=== PATIENT | male | born 1980 | race Caucasian/White ===

== ENCOUNTER 2018-10-05 21:34 | Inpatient (IN) | payer MEDICAID ==
[~2018-10-05] VITALS: Ht 182.9 cm; Wt 81.2 kg
[2018-10-05] MEDS ORDERED: KETOROLAC 30MG/ML VIAL IV STA (23:11)
[2018-10-05] MEDS ORDERED: SODIUM CHLORIDE 0.9% 1000ML BAG (SEPSIS BOLUS) IV ONE (23:15)
[2018-10-05] MEDS ORDERED: PIPERACILLIN/TAZ 3.375G PREMIX 50 ML IV ONE (23:15)
[2018-10-05] MEDS ORDERED: VANCOMYCIN 1 G PREMIX 200 ML IV ONE (23:15)
[2018-10-05 23:37] LABS: CLARITY URINE CLEAR (CLEAR); COLOR URINE DARK YELLOW (YELLOW); KETONES URINE TRACE (NEGATIVE); LEUKOCYTE ESTERASE URINE NEGATIVE (NEGATIVE); NITRITE URINE NEGATIVE (NEGATIVE); OCCULT BLOOD URINE NEGATIVE (NEGATIVE); PROTEIN URINE 1+ (NEGATIVE); SPECIFIC GRAVITY URINE 1.025 (1.005-1.030)
[2018-10-05 23:46] LABS: BASOPHILS % 0.3 % (0.0-2.0); EOSINOPHILS % 0.3 % (0.0-5.0); HEMATOCRIT. 39.8 % (42.0-52.0); HEMOGLOBIN. 14.2 g/dL (14.0-18.0); MEAN CORPUSCULAR HEMOGLOBIN 31.6 pg (28.0-32.0); MEAN CORPUSCULAR VOLUME 88.5 fL (80.0-94.0); MEAN PLATELET VOLUME 6.8 fl (7.4-10.4); MONOCYTES % 9.3 % (2.0-8.0); NEUTROPHILS % 81.1 % (40.0-76.0); PLATELET 276 x1000/uL (130-400); RED CELL DISTRIBUTION WIDTH 13.1 % (11.6-14.6)
[2018-10-05 23:48] LABS: *AMPHETAMINES SCREEN URINE PRESUMTIVE POSITIVE (NEGATIVE); *BARBITURATES SCREEN URINE NEGATIVE (NEGATIVE)
[2018-10-05 23:49] LABS: *BENZODIAZEPINES SCREEN URINE NEGATIVE (NEGATIVE); *COCAINE SCREEN URINE NEGATIVE (NEGATIVE); CANNABINOID URINE SCREEN PRESUMTIVE POSITIVE (NEGATIVE); METHADONE URINE SCREEN NEGATIVE (NEGATIVE); OPIATES URINE SCREEN PRESUMTIVE POSITIVE (NEGATIVE); PHENCYCLIDINE URINE SCREEN NEGATIVE (NEGATIVE)
[2018-10-05 23:54] LABS: CHLORIDE 94 mEq/L (98-107)
[2018-10-05 23:59] LABS: ETHANOL BLOOD < 10 mg/dL
[2018-10-06] MEDS ORDERED: ONDANSETRON HCL 4MG/2ML INJ IV STA (01:04)
[2018-10-06] MEDS ORDERED: LORAZEPAM 2MG/ML CPJ IV ONE (01:15)
[2018-10-06] MEDS ORDERED: POTASSIUM CHLORIDE 20MEQ TABLET SR PO ONE (01:45)
[2018-10-06] MEDS ORDERED: IOHEXOL-300 100 ML BOTTLE ONE (02:51)
[2018-10-06] MEDS ORDERED: SODIUM CHLORIDE 0.9% 1,000 ML IV SCH (04:30)
[2018-10-06] MEDS ORDERED: IBUPROFEN 600MG TABLET PO PRN (04:30)
[2018-10-06] MEDS ORDERED: MAGNESIUM/ALUMINUM HYDROXIDE/SIMETHICONE 30ML UDC PO PRN (07:45)
[2018-10-06] MEDS ORDERED: CLONIDINE 0.1MG TABLET PO PRN (07:45)
[2018-10-06] MEDS ORDERED: ONDANSETRON HCL 4MG/2ML INJ IV PRN (07:45)
[2018-10-06] MEDS ORDERED: DIPHENHYDRAMINE 50MG/ML VIAL IV PRN (07:45)
[2018-10-06] MEDS ORDERED: IPRATROPIUM/ALBUTEROL 0.5-3(2.5)MG/3ML NEB INH PRN (07:45)
[2018-10-06 08:30] VITALS: BP 109/68
[2018-10-06 08:45] VITALS: BP 109/68
[2018-10-06] MEDS ORDERED: VANCOMYCIN 1250MG in DEXTROSE 5% WATER 250ML IV SCH ×2 (09:00→12:00)
[2018-10-06] MEDS: SODIUM CHLORIDE 0.9% 1,000 ML IV SCH (09:11)
[2018-10-06] MEDS: PIPERACILLIN/TAZ 3.375G PREMIX 50 ML IV SCH ×3 (09:11→20:40)
[2018-10-06] MEDS: ACETAMINOPHEN 325MG TABLET PO PRN ×2 (09:11→23:20)
[2018-10-06 10:36] LABS: PHOSPHORUS 2.7 mg/dL (2.5-4.9)
[2018-10-06 12:00] VITALS: BP 107/68
[2018-10-06 16:00] VITALS: BP 108/63
[2018-10-06] MEDS: KETOROLAC 30MG/ML VIAL IV PRN ×2 (16:04→23:56)
[2018-10-06 20:00] VITALS: BP 114/68
[2018-10-06] MEDS: VANCOMYCIN 1250MG in DEXTROSE 5% WATER 250ML IV SCH (21:55)
[2018-10-06] MEDS ORDERED: VANCOMYCIN 1 G PREMIX 200 ML IV SCH (23:00)
[2018-10-07 00:17] VITALS: BP 111/66
[2018-10-07] MEDS: SODIUM CHLORIDE 0.9% 1,000 ML IV SCH (02:34)
[2018-10-07] MEDS: PIPERACILLIN/TAZ 3.375G PREMIX 50 ML IV SCH ×4 (02:34→21:57)
[2018-10-07 04:00] VITALS: BP 111/69
[2018-10-07 04:40] LABS: BASOPHILS % 0.3 % (0.0-2.0); EOSINOPHILS % 1.1 % (0.0-5.0); HEMATOCRIT. 35.7 % (42.0-52.0); HEMOGLOBIN. 12.4 g/dL (14.0-18.0); LYMPHOCYTES % 8.1 % (20.0-50.0); MEAN CORPUSCULAR HEMOGLOBIN 30.9 pg (28.0-32.0); MONOCYTES % 8.1 % (2.0-8.0); NEUTROPHILS % 82.4 % (40.0-76.0); PLATELET 293 x1000/uL (130-400); RED BLOOD CELL COUNT 4.01 mill/uL (4.7-6.1); RED CELL DISTRIBUTION WIDTH 13.1 % (11.6-14.6)
[2018-10-07 05:27] LABS: CHLORIDE 105 mEq/L (98-107)
[2018-10-07 05:35] LABS: HDL CHOLESTEROL 17 mg/dL (40-59); LDL CHOLESTEROL 50 mg/dL (5-100)
[2018-10-07 05:37] LABS: VANCOMYCIN TROUGH 12.2 ug/mL (5.0-10.0)
[2018-10-07] MEDS: VANCOMYCIN 1250MG in DEXTROSE 5% WATER 250ML IV SCH (06:18)
[2018-10-07] MEDS: KETOROLAC 30MG/ML VIAL IV PRN (06:19)
[2018-10-07 08:00] VITALS: BP 106/65
[2018-10-07] MEDS ORDERED: LORAZEPAM 2MG/ML CPJ IV PRN (08:15)
[2018-10-07] MEDS ORDERED: SODIUM CHLORIDE 0.45% 1,000 ML IV SCH (08:15)
[2018-10-07] MEDS ORDERED: POTASSIUM CHLORIDE 20MEQ TABLET SR PO SCH (09:00)
[2018-10-07] MEDS ORDERED: POTASSIUM CHLORIDE INJ 40 MEQ in DEXT 5% WATER 250 ML IV SCH (09:00)
[2018-10-07] MEDS: HYDROCODONE/ACETAMINOPHEN 5/325MG TABLET PO PRN (10:45)
[2018-10-07 12:00] VITALS: BP 110/69
[2018-10-07] MEDS: MORPHINE SULFATE 2 MG/ML CPJ (NOT FOR IM USE) IV PRN ×2 (13:16→17:42)
[2018-10-07] MEDS: DEXT 5%/0.45% NACL KCL 20MEQ/L 1,000 ML IV SCH ×2 (14:55→16:32)
[2018-10-07] MEDS: VANCOMYCIN 1500MG in DEXTROSE 5% WATER 250ML IV SCH ×2 (14:57→22:54)
[2018-10-07 16:11] LABS: CHLORIDE 106 mEq/L (98-107)
[2018-10-07 16:28] VITALS: BP 108/63
[2018-10-07] MEDS: ACETAMINOPHEN 325MG TABLET PO PRN (16:32)
[2018-10-07] MEDS ORDERED: LIDOCAINE HCL 1% 20ML VIAL (Pyxis) INJ ONE (17:23)
[2018-10-07] MEDS ORDERED: BUPIVACAINE HCL/PF 0.5% (5MG/ML) 10ML ONE (17:23)
[2018-10-07] MEDS ORDERED: BACITRACIN 50,000 UNITS/VIAL ONE (17:24)
[2018-10-07] MEDS ORDERED: FENTANYL CITRATE/PF 50MCG/ML 2ML VIAL ONE ×2 (19:31→19:47)
[2018-10-07] MEDS ORDERED: PROPOFOL 200MG/20ML VIAL IV ONE ×2 (19:31→19:47)
[2018-10-07] MEDS ORDERED: MIDAZOLAM HCL 2 MG/2 ML VIAL ONE (19:31)
[2018-10-07] MEDS ORDERED: LIDOCAINE HCL/PF 1% 10 MG/ML 5ML VIAL ONE (19:31)
[2018-10-07] MEDS ORDERED: ONDANSETRON HCL 4MG/2ML INJ ONE (19:31)
[2018-10-07] MEDS ORDERED: METOCLOPRAMIDE HCL 10MG/2ML VIAL ONE (19:31)
[2018-10-07] MEDS ORDERED: GLYCOPYRROLATE 0.2 MG/ML 2ML VIAL ONE (19:31)
[2018-10-07] MEDS ORDERED: SUCCINYLCHOLINE CHLORIDE 200MG/10ML IV ONE (19:31)
[2018-10-07] MEDS ORDERED: HYDROMORPHONE HCL/PF 2MG/ML (OR) ONE (20:09)
[2018-10-07] MEDS ORDERED: ONDANSETRON HCL 4MG/2ML INJ IV PRN (20:45)
[2018-10-07] MEDS ORDERED: LABETALOL 5MG/ML SYR 20 MG/4 ML SYRINGE IV PRN (20:45)
[2018-10-07] MEDS ORDERED: HYDROMORPHONE HCL/PF 2MG/ML CPJ IV PRN (20:45)
[2018-10-07] MEDS ORDERED: MEPERIDINE HCL/PF 25MG/ML CPJ IV PRN (20:45)
[2018-10-07 22:00] VITALS: BP 90/57
[2018-10-08] VITALS (38 sets, daily range): BP systolic 79–112; BP diastolic 41–70
[2018-10-08] MEDS: PIPERACILLIN/TAZ 3.375G PREMIX 50 ML IV SCH ×4 (03:05→20:17)
[2018-10-08 06:43] LABS: BASOPHILS % 0.3 % (0.0-2.0); EOSINOPHILS % 1.3 % (0.0-5.0); HEMATOCRIT. 31.5 % (42.0-52.0); HEMOGLOBIN. 10.9 g/dL (14.0-18.0); LYMPHOCYTES % 7.7 % (20.0-50.0); MEAN CORPUSCULAR HEMOGLOBIN 31.2 pg (28.0-32.0); MEAN CORPUSCULAR VOLUME 90.5 fL (80.0-94.0); MEAN PLATELET VOLUME 7.7 fl (7.4-10.4); MONOCYTES % 8.8 % (2.0-8.0); NEUTROPHILS % 81.9 % (40.0-76.0); PLATELET 343 x1000/uL (130-400); RED BLOOD CELL COUNT 3.48 mill/uL (4.7-6.1)
[2018-10-08] MEDS ORDERED: NOREPINEPHRINE 4 MG in DEXT 5% WATER 246 ML IV PRN (06:54)
[2018-10-08] MEDS ORDERED: NOREPINEPHRINE 4 MG in DEXTROSE 5% WATER 250 ML IV PRN (08:00)
[2018-10-08] MEDS: HYDROCODONE/ACETAMINOPHEN 5/325MG TABLET PO PRN (09:10)
[2018-10-08] MEDS ORDERED: KETOROLAC 15MG/ML VIAL IV PRN (09:45)
[2018-10-08] MEDS: VANCOMYCIN 1500MG in DEXTROSE 5% WATER 250ML IV SCH ×2 (10:42→10:45)
[2018-10-08] MEDS: HYDROMORPHONE HCL/PF 2MG/ML CPJ IV PRN ×4 (10:43→22:48)
[2018-10-08] MEDS: SODIUM CHLORIDE 0.9% 1,000 ML IV SCH ×2 (13:00→22:49)
[2018-10-08] MEDS ORDERED: VANCOMYCIN 1500MG in DEXTROSE 5% WATER 250ML IV SCH (22:00)
[2018-10-09] VITALS (36 sets, daily range): BP systolic 92–124; BP diastolic 49–79
[2018-10-09] MEDS: PIPERACILLIN/TAZ 3.375G PREMIX 50 ML IV SCH ×4 (02:37→21:20)
[2018-10-09] MEDS: HYDROMORPHONE HCL/PF 2MG/ML CPJ IV PRN ×6 (02:38→20:59)
[2018-10-09] MEDS: SODIUM CHLORIDE 0.9% 1,000 ML IV SCH ×3 (05:23→20:50)
[2018-10-09 05:33] LABS: BASOPHILS % 0.3 % (0.0-2.0); EOSINOPHILS % 4.4 % (0.0-5.0); HEMATOCRIT. 30.4 % (42.0-52.0); HEMOGLOBIN. 10.3 g/dL (14.0-18.0); LYMPHOCYTES % 13.6 % (20.0-50.0); MEAN CORPUSCULAR HEMOGLOBIN 30.6 pg (28.0-32.0); MEAN CORPUSCULAR VOLUME 90.1 fL (80.0-94.0); MEAN PLATELET VOLUME 7.2 fl (7.4-10.4); MONOCYTES % 7.3 % (2.0-8.0); NEUTROPHILS % 74.4 % (40.0-76.0); PLATELET 352 x1000/uL (130-400); RED BLOOD CELL COUNT 3.37 mill/uL (4.7-6.1); RED CELL DISTRIBUTION WIDTH 13.7 % (11.6-14.6)
[2018-10-09 05:45] LABS: PHOSPHORUS 2.7 mg/dL (2.5-4.9)
[2018-10-09] MEDS: HYDROCODONE/ACETAMINOPHEN 5/325MG TABLET PO PRN (08:21)
[2018-10-09] MEDS ORDERED: POTASSIUM CHLORIDE 20MEQ/PACKET PO ONE (09:15)
[2018-10-09] MEDS ORDERED: FUROSEMIDE 20MG/2ML VIAL IVP ONE (09:15)
[2018-10-09] MEDS ORDERED: TAMSULOSIN HCL 0.4MG SR CAPSULE PO SCH (21:00)
[2018-10-10] VITALS: BP 106/57
[2018-10-10] MEDS: HYDROMORPHONE HCL/PF 2MG/ML CPJ IV PRN ×8 (00:47→21:17)
[2018-10-10] MEDS: PIPERACILLIN/TAZ 3.375G PREMIX 50 ML IV SCH ×4 (03:10→20:59)
[2018-10-10 04:00] VITALS: BP 104/59
[2018-10-10] MEDS: SODIUM CHLORIDE 0.9% 1,000 ML IV SCH ×3 (04:38→21:00)
[2018-10-10 06:52] LABS: BASOPHILS % 0.5 % (0.0-2.0); EOSINOPHILS % 5.4 % (0.0-5.0); HEMATOCRIT. 30.7 % (42.0-52.0); HEMOGLOBIN. 10.8 g/dL (14.0-18.0); LYMPHOCYTES % 18.7 % (20.0-50.0); MEAN CORPUSCULAR HEMOGLOBIN 31.4 pg (28.0-32.0); MEAN CORPUSCULAR VOLUME 89.6 fL (80.0-94.0); MEAN PLATELET VOLUME 6.9 fl (7.4-10.4); MONOCYTES % 7.6 % (2.0-8.0); NEUTROPHILS % 67.8 % (40.0-76.0); PLATELET 438 x1000/uL (130-400); RED BLOOD CELL COUNT 3.43 mill/uL (4.7-6.1); RED CELL DISTRIBUTION WIDTH 13.3 % (11.6-14.6)
[2018-10-10 07:00] LABS: CHLORIDE 109 mEq/L (98-107); HEPATITIS B SURFACE ANTIGEN NEGATIVE
[2018-10-10 07:07] LABS: PHOSPHORUS 4.1 mg/dL (2.5-4.9)
[2018-10-10 07:29] LABS: HEPATITIS A AB IGM NEGATIVE (NEGATIVE)
[2018-10-10 08:00] VITALS: BP 107/53
[2018-10-10 12:00] VITALS: BP 102/56
[2018-10-10 16:00] VITALS: BP 113/57
[2018-10-10 20:00] VITALS: BP 116/71
[2018-10-11] VITALS: BP 108/59
[2018-10-11] MEDS: HYDROMORPHONE HCL/PF 2MG/ML CPJ IV PRN ×7 (01:26→21:06)
[2018-10-11] MEDS: PIPERACILLIN/TAZ 3.375G PREMIX 50 ML IV SCH ×2 (02:50→08:38)
[2018-10-11 04:00] VITALS: BP 121/39
[2018-10-11] MEDS: SODIUM CHLORIDE 0.9% 1,000 ML IV SCH ×3 (05:13→18:03)
[2018-10-11 07:05] LABS: BASOPHILS % 0.5 % (0.0-2.0); EOSINOPHILS % 4.2 % (0.0-5.0); HEMATOCRIT. 30.4 % (42.0-52.0); HEMOGLOBIN. 10.6 g/dL (14.0-18.0); LYMPHOCYTES % 17.7 % (20.0-50.0); MEAN CORPUSCULAR HEMOGLOBIN 31.2 pg (28.0-32.0); MEAN CORPUSCULAR VOLUME 89.9 fL (80.0-94.0); MEAN PLATELET VOLUME 6.9 fl (7.4-10.4); NEUTROPHILS % 67.6 % (40.0-76.0); PLATELET 456 x1000/uL (130-400); RED BLOOD CELL COUNT 3.39 mill/uL (4.7-6.1); RED CELL DISTRIBUTION WIDTH 13.2 % (11.6-14.6)
[2018-10-11 07:09] LABS: PHOSPHORUS 4.1 mg/dL (2.5-4.9)
[2018-10-11 08:00] VITALS: BP 112/60
[2018-10-11 08:11] LABS: HIV SCREEN 4G Non Reactive (Non Reactive)
[2018-10-11 11:33] VITALS: BP 117/72
[2018-10-11] MEDS ORDERED: VANCOMYCIN 750 MG PREMIX 150 ML IV SCH (13:00)
[2018-10-11] MEDS: CEFTRIAXONE 1 G PREMIX 50 ML IV SCH (15:41)
[2018-10-11 15:56] VITALS: BP 115/65
[2018-10-11 20:40] VITALS: BP 123/71
[2018-10-12] MEDS: HYDROMORPHONE HCL/PF 2MG/ML CPJ IV PRN ×6 (00:12→20:31)
[2018-10-12 00:36] VITALS: BP 119/65
[2018-10-12 04:00] VITALS: BP 108/54
[2018-10-12] MEDS: SODIUM CHLORIDE 0.9% 1,000 ML IV SCH ×3 (05:06→22:33)
[2018-10-12 08:00] LABS: BASOPHILS % 0.6 % (0.0-2.0); EOSINOPHILS % 3.8 % (0.0-5.0); HEMATOCRIT. 30.2 % (42.0-52.0); HEMOGLOBIN. 10.4 g/dL (14.0-18.0); LYMPHOCYTES % 19.7 % (20.0-50.0); MEAN CORPUSCULAR VOLUME 89.8 fL (80.0-94.0); MEAN PLATELET VOLUME 6.6 fl (7.4-10.4); MONOCYTES % 7.8 % (2.0-8.0); NEUTROPHILS % 68.1 % (40.0-76.0); PLATELET 430 x1000/uL (130-400); RED BLOOD CELL COUNT 3.37 mill/uL (4.7-6.1); RED CELL DISTRIBUTION WIDTH 12.9 % (11.6-14.6)
[2018-10-12 08:20] LABS: PHOSPHORUS 3.3 mg/dL (2.5-4.9)
[2018-10-12 08:51] VITALS: BP 115/71
[2018-10-12 12:37] VITALS: BP 126/68
[2018-10-12] MEDS: CEFTRIAXONE 1 G PREMIX 50 ML IV SCH (13:39)
[2018-10-12 16:00] VITALS: BP 113/66
[2018-10-12 20:00] VITALS: BP 114/66
[2018-10-13] VITALS (7 sets, daily range): BP systolic 118–124; BP diastolic 63–76
[2018-10-13 07:34] LABS: BASOPHILS % 0.4 % (0.0-2.0); HEMATOCRIT. 31.6 % (42.0-52.0); LYMPHOCYTES % 17.9 % (20.0-50.0); MEAN CORPUSCULAR HEMOGLOBIN 31.3 pg (28.0-32.0); MEAN CORPUSCULAR VOLUME 89.9 fL (80.0-94.0); MEAN PLATELET VOLUME 6.6 fl (7.4-10.4); MONOCYTES % 6.9 % (2.0-8.0); NEUTROPHILS % 71.8 % (40.0-76.0); PLATELET 465 x1000/uL (130-400); RED BLOOD CELL COUNT 3.52 mill/uL (4.7-6.1); RED CELL DISTRIBUTION WIDTH 12.9 % (11.6-14.6)
[2018-10-13 07:46] LABS: PHOSPHORUS 3.4 mg/dL (2.5-4.9)
[2018-10-13] MEDS: ACETAMINOPHEN 325MG TABLET PO PRN (10:50)
[2018-10-13] MEDS: CEFTRIAXONE 1 G PREMIX 50 ML IV SCH (14:08)
[2018-10-14] VITALS: BP 121/68
[2018-10-14 04:00] VITALS: BP 110/63
[2018-10-14 05:55] LABS: BASOPHILS % 0.4 % (0.0-2.0); EOSINOPHILS % 2.2 % (0.0-5.0); HEMOGLOBIN. 11.6 g/dL (14.0-18.0); LYMPHOCYTES % 21.8 % (20.0-50.0); MEAN CORPUSCULAR HEMOGLOBIN 31.5 pg (28.0-32.0); MEAN CORPUSCULAR VOLUME 89.4 fL (80.0-94.0); MEAN PLATELET VOLUME 6.2 fl (7.4-10.4); MONOCYTES % 8.4 % (2.0-8.0); NEUTROPHILS % 67.2 % (40.0-76.0); PLATELET 532 x1000/uL (130-400); RED BLOOD CELL COUNT 3.69 mill/uL (4.7-6.1); RED CELL DISTRIBUTION WIDTH 13.1 % (11.6-14.6)
[2018-10-14 07:22] LABS: PHOSPHORUS 3.9 mg/dL (2.5-4.9)
[2018-10-14 08:30] VITALS: BP 107/62
[2018-10-14 12:00] VITALS: BP 101/63
[2018-10-14] MEDS: CEFTRIAXONE 1 G PREMIX 50 ML IV SCH (14:21)
[2018-10-14 16:26] VITALS: BP 106/65
[2018-10-14 20:00] VITALS: BP 120/70
[2018-10-14] MEDS: ACETAMINOPHEN 325MG TABLET PO PRN (20:32)
[2018-10-15] VITALS: BP 108/70
[2018-10-15 04:00] VITALS: BP 113/72
[2018-10-15 06:00] LABS: BASOPHILS % 0.4 % (0.0-2.0); EOSINOPHILS % 1.8 % (0.0-5.0); HEMATOCRIT. 36.4 % (42.0-52.0); HEMOGLOBIN. 12.6 g/dL (14.0-18.0); LYMPHOCYTES % 23.6 % (20.0-50.0); MEAN CORPUSCULAR HEMOGLOBIN 30.9 pg (28.0-32.0); MEAN CORPUSCULAR VOLUME 89.5 fL (80.0-94.0); MEAN PLATELET VOLUME 6.4 fl (7.4-10.4); MONOCYTES % 8.3 % (2.0-8.0); NEUTROPHILS % 65.9 % (40.0-76.0); PLATELET 570 x1000/uL (130-400); RED BLOOD CELL COUNT 4.07 mill/uL (4.7-6.1); RED CELL DISTRIBUTION WIDTH 13.2 % (11.6-14.6)
[2018-10-15 06:10] LABS: PHOSPHORUS 4.2 mg/dL (2.5-4.9)
[2018-10-15 08:00] VITALS: BP 101/64
[2018-10-15 12:00] VITALS: BP 106/60
[2018-10-15] MEDS: CEFTRIAXONE 1 G PREMIX 50 ML IV SCH (14:18)
[2018-10-15 16:06] VITALS: BP 106/56
[2018-10-15 20:00] VITALS: BP 100/62
[2018-10-15] MEDS: HYDROCODONE/ACETAMINOPHEN 5/325MG TABLET PO PRN (23:34)
[2018-10-16] VITALS: BP 107/59
[2018-10-16 04:00] VITALS: BP 107/64
[2018-10-16] MEDS: HYDROCODONE/ACETAMINOPHEN 5/325MG TABLET PO PRN ×2 (04:37→10:38)
[2018-10-16 05:49] LABS: PHOSPHORUS 4.2 mg/dL (2.5-4.9)
[2018-10-16 05:54] LABS: BASOPHILS % 0.6 % (0.0-2.0); EOSINOPHILS % 1.7 % (0.0-5.0); HEMATOCRIT. 36.6 % (42.0-52.0); HEMOGLOBIN. 12.6 g/dL (14.0-18.0); LYMPHOCYTES % 30.3 % (20.0-50.0); MEAN CORPUSCULAR HEMOGLOBIN 31.1 pg (28.0-32.0); MEAN CORPUSCULAR VOLUME 90.4 fL (80.0-94.0); MEAN PLATELET VOLUME 6.1 fl (7.4-10.4); NEUTROPHILS % 60.4 % (40.0-76.0); PLATELET 512 x1000/uL (130-400); RED BLOOD CELL COUNT 4.05 mill/uL (4.7-6.1); RED CELL DISTRIBUTION WIDTH 13.4 % (11.6-14.6)
[2018-10-16 08:00] VITALS: BP 104/64
[2018-10-16 12:00] VITALS: BP 110/70
[2018-10-16] MEDS: CEFTRIAXONE 1 G PREMIX 50 ML IV SCH (14:50)
[2018-10-16 16:00] VITALS: BP 100/54
[2018-10-16 20:15] VITALS: BP 123/77
[2018-10-17] VITALS: BP 102/62
[2018-10-17] MEDS: HYDROCODONE/ACETAMINOPHEN 5/325MG TABLET PO PRN (02:12)
[2018-10-17 04:00] VITALS: BP 98/59
[2018-10-17 08:00] VITALS: BP 99/62
== END 2018-10-17 11:25 | disposition home health service (06) | DRG 720 ==
LOC: ER 21:34 → 5WST 10-06 04:31 → ENRESERV 10-06 06:42 → MICUSO 10-08 06:30 → 8WST 10-09 19:00
PROVIDERS: ADMIT Internal Medicine; ATTEND Internal Medicine
PROC: 0HB8XZZ Excision of Buttock Skin, External Approach (ICD-10-PCS; principal; 2018-10-07)
PROC: 02HV33Z Insertion of Infusion Device into Superior Vena Cava, Percutaneous Approach (ICD-10-PCS; 2018-10-08)
PROC: B548ZZA Ultrasonography of Superior Vena Cava, Guidance (ICD-10-PCS; 2018-10-08)
DX: A41.9 Sepsis, unspecified organism (principal); N17.0 Acute kidney failure with tubular necrosis; R65.21 Severe sepsis with septic shock; E43 Unspecified severe protein-calorie malnutrition; E87.2 Acidosis; I95.9 Hypotension, unspecified; E87.6 Hypokalemia; L02.31 Cutaneous abscess of buttock; R74.0 Nonspecific elevation of levels of transaminase and lactic acid dehydrogenase [LDH]; Z60.2 Problems related to living alone; D64.9 Anemia, unspecified; B19.20 Unspecified viral hepatitis C without hepatic coma; N14.1 Nephropathy induced by other drugs, medicaments and biological substances; F11.120 Opioid abuse with intoxication, uncomplicated; T50.8X5A Adverse effect of diagnostic agents, initial encounter; F15.120 Other stimulant abuse with intoxication, uncomplicated; Z87.891 Personal history of nicotine dependence; Z71.51 Drug abuse counseling and surveillance of drug abuser; Z82.49 Family history of ischemic heart disease and other diseases of the circulatory system; Y92.89 Other specified places as the place of occurrence of the external cause; Z68.24 Body mass index [BMI] 24.0-24.9, adult
CPT/HCPCS: 36415; 71045; 74177; 76770; 76937; 80048; 80061; 80202; 80305; 80320; 82550; 83605; 83615; 83735; 84100; 84145; 84443; 86705; 86709; 86803; 87070; 87075; 87077; 87340; 87389; 93005; 93970; 96365; 99285; C1725; C1769; C1893; J0330; J0696; J1170; J1885; J2060; J2250; J2270; J2405; J2543; J2704; J2765; J3010; J3370; J3480; J3490; J7030; J7040; J7060; Q9967; G0480